=== PATIENT | female | born 1960 | race Caucasian/White ===

== ENCOUNTER 2020-04-14 12:22 | Emergency (ER) | payer OTHER, SELFPAY ==
--- NOTE | 2020-04-14 12:24 | ED.GENADULT ---
HPI - General Adult General Chief complaint: Ear Stated complaint: Ear Pain Time Seen by Provider: 04/14/20 12:24 Source: patient Mode of arrival: ambulatory Limitations: no limitations History of Present Illness HPI narrative: 59-year-old female patient presents to the [facility] with complaints of bilateral ear pain but more so on the right than the left for the past 3 days. Patient states she is also had a runny nose and some coughing as well as some drainage to the back the throat. Patient states she is been taking some Sudafed which has drained and dried up some of the nasal drainage. Denies any fevers but states she has had a little bit of body aches. Denies any chills. Denies any chest pain, shortness of breath. Patient denies any Covid diagnosis within the last 3 months. Related Data Allergies Allergy/AdvReac Type Severity Reaction Status Date / Time No Known Allergies Allergy Verified 04/14/20 12:37 Review of Systems Review of Systems: Narrative: CONSTITUTIONAL: Denies fever, chills, or sweats. EYES: Denies visual changes, redness, or discharge. ENT: Positive rhinorrhea, congestion, denies sore throat, positive bilateral otalgia. CARDIOVASCULAR: Denies chest pain, palpitations, or edema. RESPIRATORY: Denies cough or dyspnea. GASTROINTESTINAL: Denies abdominal pain, nausea, vomiting, or diarrhea. GENITOURINARY: Denies dysuria or hematuria. SKIN: Denies rash or itching. MUSCULOSKELETAL: Denies back pain, joint pain, or myalgia. NEUROLOGIC: Denies headache, numbness, or weakness. PSYCHIATRIC: Denies anxiety or depression. PMFSH Comments At the time of my signature I agree with nursing past medical history, surgical, social, and family history. There is no relevant family history pertinent to the presenting complaint. Exam Narrative: Exam Narrative: GENERAL: Well-appearing, well-nourished, and in no acute distress. HEAD: Normocephalic, atraumatic. EYES: PERRLA and EOMI. ENT: Nares with erythema and edema noted bilaterally, no rhinorrhea or epistaxis. Mucous membranes moist. Posterior pharynx with no erythema, tonsillar Mamadou, exudates or lesions present. There is fluid noted behind bilateral TMs but there is no erythema or evidence of infection at this time. NECK: Supple. No lymphadenopathy CHEST: Clear to auscultation. No respiratory distress. Patient able talk in clear complete sentences. HEART: Regular rate and rhythm. No murmur heard. Normal peripheral pulses. ABDOMEN: Soft, nontender, nondistended, normal active bowel sounds. EXTREMITIES: Normal range of motion. No edema. SKIN: Warm, dry, no rash. NEURO: No focal deficits. Alert and oriented x3. Course Vital Signs Vital signs: Vital Signs Temperature 37.0 C 04/14/20 12:45 Pulse Rate 89 04/14/20 12:45 Respiratory Rate 18 04/14/20 12:45 Blood Pressure 148/75 H 04/14/20 12:45 Pulse Oximetry 97 04/14/20 12:45 Temperature 37.0 C 04/14/20 12:45 Pulse Rate 89 04/14/20 12:45 Respiratory Rate 18 04/14/20 12:45 Blood Pressure 148/75 H 04/14/20 12:45 Pulse Oximetry 97 04/14/20 12:45 Vital signs reviewed The patient has been informed that they may have pre-hypertension or Hypertension based on a BP reading in the department. I recommend that the patient call the primary care provider listed on their discharge instructions or a physician of their choice this week to arrange follow up for further evaluation of possible pre-hypertension or Hypertension Medical Decision Making Differential Diagnosis Differential Diagnosis: Differential diagnosis: Otitis media, otitis externa, perforated TM, infection of the outer ear, foreign body or cerumen impaction, ruptured TM, acute mastoiditis, ligament otitis externa, dehydration, pneumonia, sepsis, dental or intraoral infection, TMJ dysfunction Notify patient that it does appear that she is got some fluid behind her ears which is most likely causing the earache pain. Discussed with al
[2020-04-14 12:45] VITALS: BP 148/75; PULSE 89; RESP 18; TEMP 37; O2SAT 97
== END 2020-04-14 13:32 | disposition home or self-care (01) ==
PROVIDERS: Emergency Provider Nurse Practitioner Family
DX: H73.893 Other specified disorders of tympanic membrane, bilateral (principal); J30.9 Allergic rhinitis, unspecified
CPT/HCPCS: 99203; G0463